=== PATIENT | male | born 1950 | race Caucasian/White ===

== ENCOUNTER 2018-12-27 08:47 | Day surgery (SDC) | payer MEDICARE, OTHER ==
[~2018-12-27] VITALS: Ht 177.8 cm; Wt 72.6 kg
[2018-12-27] VITALS (7 sets, daily range): BP systolic 117–155; BP diastolic 56–74
[~2018-12-27 08:47] MED LIST: ALLOPURINOL100 MG OR; FLEXERIL PO; GLIPIZIDE ER2.5 MG PO; HYDROXYCHLOR200 MG PO; INDOCIN25 MG PO; INDOMETHACIN50 MG OR; LEVOTHYROXIN75 MC1 PO; LORTAB 7.57.5 MG PO; NAPROSYN500 MG PO; NO; PERCOCET 10/31 COMBO PO; TAMSULOSIN HCL0.4 MG PO; TRAMADOL HCL50 MG PO; ULTRAM50 MG OR; ZESTRIL/PRINIV2.5 MG PO; ZESTRIL10 M1 PO; [UNRECOGNIZED DRUG - REMARK]
[2018-12-27 11:32] LABS: BARBITURATES NEGATIVE (NEGATIVE); COCAINE NEGATIVE (NEGATIVE); METHADONE NEGATIVE (NEGATIVE); OXCYCODONE NEGATIVE (NEGATIVE); TETRAHYDROCANNABIONOL NEGATIVE (NEGATIVE); TRICYLIC ANTIDEPRESSANTS NEGATIVE (NEGATIVE)
--- NOTE | 2018-12-27 14:13 | NUR ---
PT ARRIVED ON UNIT @ 1332 VIA STRETCHER AND TRANSFERRED TO BED, ALERT AND ORIENTED X 4. BEDSIDE REPORT GIVEN BY AIDE FROM OR WHO REPORTED DR WORKMAN REMOVED MASS FROM LEFT FACE. DRESSING TO AREA CDI, OR STAFF REPORTED INCISION HAS SUTURES, COVERED WITH STACEY AND SECURED WITH TAPE, EBL = 10CC, ANCEF GIVEN @ 1200. PT ORIENTED TO ROOM AND CALL FRANKLIN. C/O PAIN TO LEFT FACE, IVF INFUSING, VITAL SIGNS BEING MONITORED, WILL CONTINUE TO MONITOR.
--- NOTE | 2018-12-27 20:08 | NUR ---
PT C/O NOT BEING ABLE TO VOID STATES HAD SIMILAR EXPERIENCE WITH PRIOR PROCEDURE. PT HAS HX OF BPH AND TAKES FLOMAX, LAST DOSE TAKEN TUESDAY MORNING. BLADDER NOTED TO BE DISTENDED, BLADDER SCAN DONE SHOWING 708ML IN BLADDER. NOTIFIED DR. WORKMAN VIA TELEPHONE AND RECEIVED ORDERS TO STRAIGHT CATH AND GIVE ONE DOSE OF FLOMAX NOW, IF PT DOES NOT VOID IN [address] PRINCE CATHETER[address] DISCUSSED WITH PT, PT VERBALIZED UNDERSTANDING. PT STRAIGHT CATHED USING STERILE TECHNIQUE, 575ML CLEAR YELLOW URINE OUT. PT TOLERATED WELL. WILL ADMINISTER FLOMAX SOON PHARMACY PROFILES MEDICATION. PT DENIES ANY WANTS OR NEEDS AT THIS TIME. CALL LIGHT WITHIN REACH. WILL CONTINUE TO MONITOR.
--- NOTE | 2018-12-27 22:07 | NUR ---
PT VOIDED 150 ML IN URINE WITHOUT DIFFICULTY. ASSISTED PT UP AND AMBULATED WITH STAND BY ASSIST TO END OF ARZATE AND BACK TO ROOM. PT TOLERATED WELL. ASSISTED BACK TO BED. CADE LIGHT WITHIN REACH. PT HAS NO WANTS OR NEEDS AT THIS TIME. WILL CONTINUE TO MONITOR.
--- NOTE | 2018-12-28 03:02 | NUR ---
PT C/O PAIN 5-10 TO LEFT SIDE OF FACE. MEDICATED WITH PRN PAIN MEDICATION. CALL LIGHT WITHIN REACH. WILL CONTINUE TO MONITOR.
[2018-12-28 04:00] VITALS: BP 116/60
[2018-12-28 07:40] VITALS: BP 150/75
--- NOTE | 2018-12-28 08:00 | NUR ---
PT IS SITTING IN THE SIDE OF THE BED. ASSESSMENT DONE. PT IS A&O X3. RESPS EVEN AND UNLABORED. PT DENIES ANY PAIN AT THIS TIME. LEFT SIDE OF FACE DRESSING IS CDI. PT WONDERING WHAT TIME DC TODAY. TOLD HIM WAITING FOR MD. PT PT DENIES ANY OTHER NEEDS AT THIS TIME. CALL LIGHT IN REACH.
[2018-12-28 08:28] VITALS: BP 150/75
--- NOTE | 2018-12-28 09:29 | NUR ---
CALLED DR. WORKMAN RE: MARIE ROCA STATED WILL WORK ON IT.
--- NOTE | 2018-12-28 11:55 | NUR ---
CALLED DR. WORKMAN RE: DC DUE TO PT KEEPING ASKING WHEN. STATED IS WORKING ON IT NOW.
--- NOTE | 2018-12-28 12:48 | NUR ---
Discharge instructions given. Patient verbalizes understanding of same. Discharged in stable condition via Wheelchair to Home with volunteer. All belongings sent with pt.
== END 2018-12-28 12:50 | disposition home or self-care (01) ==
LOC: MS2 08:47 → ORM 08:47 → MS2 13:34 → ORM 12-28 12:50
PROVIDERS: ATTEND Surgery
PROC: 0HB1XZZ Excision of Face Skin, External Approach (ICD-10-PCS; principal; 2018-12-27)
DX: C43.30 Malignant melanoma of unspecified part of face (principal); I10 Essential (primary) hypertension; Z95.1 Presence of aortocoronary bypass graft
CPT/HCPCS: J1100

== ENCOUNTER 2020-01-16 14:52 | Inpatient (IN) | payer MEDICARE, OTHER ==
[~2020-01-16] VITALS: Ht 177.8 cm; Wt 68.6 kg
--- NOTE | 2020-01-16 15:03 | NUR ---
PT TO ROOM PER EMS
--- NOTE | 2020-01-16 16:00 | NUR ---
PT SWABBED FOR COVID 19 VIRUS
--- NOTE | 2020-01-16 16:15 | NUR ---
PT PRESENTS WITH SOB AFTER ANXIETY. HE STATES HAVING THE ONSET TODAY MID DAY. LUNGS DIMINISHED RIGHT LOWER LOBE AND CLEAR LEFT LOBE. PT CALM NOW AND SATO2 AT 98% RA. WILL CONTINUE TO MONITOR. ASKED FOR ADDITIONAL IV IN AC FOR CT. IV INITIATED RAC 20 G
[2020-01-16 17:05] LABS: HEMATOCRIT 39.4 % (39.0-50.0); HEMOGLOBIN 12.1 g/dl (14.0-18.0); IMMATURE GRANULOCYTES 0.4 % (0.0-5.0); MEAN CELL VOLUME 81.7 fL CALC (80.0-100.0); MEAN CORPUSCULAR HGB 25.1 pG CALC (26.0-32.0); MEAN CORPUSCULAR HGB CONC 30.7 g/dL CAL (32.0-36.0); NEUT# 6.1 thou/uL (1.82-7.42); RED BLOOD COUNT 4.82 mill/uL (4.70-6.10)
[2020-01-16 17:15] LABS: URINE BILIRUBIN - DIPSTICK NEGATIVE (NEGATIVE); URINE BLOOD DIPSTICK TRACE-INTACT (NEGATIVE); URINE COLOR YELLOW; URINE GLUCOSE - DIPSTICK NEGATIVE (NEGATIVE); URINE KETONE NEGATIVE (NEGATIVE); URINE LEUK ESTERASE NEGATIVE (NEGATIVE); URINE NITRITE - DIPSTICK NEGATIVE (Negative); URINE PROTEIN - DIPSTICK NEGATIVE (NEG-TRACE); URINE SPECIFIC GRAVITY 1.025; URINE UROBILINOGEN - DIPSTICK 0.2 E.U./dL (0.2)
--- NOTE | 2020-01-16 17:19 | NUR ---
PT ASKED TO STAND TO PROVIDE URINE SPECIMEN, PT WAS TOLD THAT ITS BEST FOR HIM NOT TO STAND SINCE HE FELL TWO DAYS AGO. HE WAS RELUCTANT TO STAND. I ASSISTED HIM TO URINATE IN URINAL STANDING AND LAY HIM IN BED BEFORE LEAVING ROOM.
[2020-01-16 17:20] LABS: ALBUMIN 4.5 g/dL (3.2-5.0); ALKALINE PHOSPHATASE 98 u/l (38-126); ANION GAP 15 (6-22 (CALC)); BILIRUBIN, TOTAL 0.5 mg/dL (0.0-1.4); BUN 47 mg/dL (8-23); BUN/CREATININE RATIO 24 (12-20 (CALC)); CARBON DIOXIDE 25 mmol/l (22-30); CHLORIDE 106 mmol/l (95-108); GFR 33 ML/MIN (>=60 (CALC)); GFR FOR AFR.AMER. 41 ML/MIN (>=60 (CALC)); LIPASE 434 u/l (23-300); POTASSIUM 4.6 mmol/l (3.5-5.1); SGOT/AST 24 u/l (19-48); SODIUM 141 mmol/l (137-146); TOTAL PROTEIN 8.2 g/dL (6.3-8.2)
--- NOTE | 2020-01-16 18:26 | NUR ---
ATTEMPTED TO CALL REPORT TO MED SURG AND IT WAS SAID NURSE IS BUSY PASSING MEDS AND WILL RETURN MY PHONE CALL
--- NOTE | 2020-01-16 18:38 | NUR ---
GAVE REPORT TO STEVAN TILLMAN
--- NOTE | 2020-01-16 18:50 | NUR ---
PT TRANSFERED TO [facility] STABLE AND IN NO DISTRESS VIA W/C. CARE ASSUMED TO STEVAN Admission Note Report Given to: Transported by: X Wheelchair Stretcher Transported with: X Nurse Transporter X Patent IV O2 X Regional Sales Executive Location: ICU X MS2
--- NOTE | 2020-01-16 18:51 | NUR ---
PT ARRIVED VIA STRETCHER ACCOMPANIED BY STAFF. IV SITE IS FREE FROM REDNESS OR EDEMA.
--- NOTE | 2020-01-16 20:00 | NUR ---
PT RESTING IN BED, NO SIGNS OF DISTRESS NOTED, RESP EVEN AND UNLABORED, DISCUSSED POC, ISOLATION PRECAUTIONS, AND NPO STATUS AFTER MIDNIGHT, PT VERBALIZED UNDERSTANDING. ADMISSION ASSESSMENT COMPLETED, CALL LIGHT IN REACH,CONTINUE TO MONITOR.
[2020-01-16 20:05] VITALS: BP 114/74
--- NOTE | 2020-01-16 21:41 | NUR ---
CALL MADE TO MD REGARDING PAIN, PAIN MEDICATION ORDERED. WILL PROVIDE ONCE PHARMACY PROFILED.
[2020-01-16 23:34] VITALS: BP 119/82
[2020-01-17] VITALS (7 sets, daily range): BP systolic 102–134; BP diastolic 60–82
--- NOTE | 2020-01-17 00:38 | NUR ---
PT SITTING ON SIDE OF BED STATES HE IS NAUSEOUS, EMESIS BAG GIVEN, PT VOMITTED 200CC OF CLEAR EMESIS. OFFERED PT ANTI-EMETIC, PT DECLINED STATES HE WILL BE OK. CALL LIGHT IN REACH,CONTINUE TO MONITOR.
--- NOTE | 2020-01-17 04:00 | NUR ---
PT RESTING IN BED, NO SIGNS OF DISTRESS NOTED, RESP EVEN AND UNLABORED. PT VOICES NO NEEDS OR COMPLAINTS AT THIS TIME, CALL LIGHT IN REACH,CONTINUE TO MONITOR.
--- NOTE | 2020-01-17 07:40 | NUR ---
ASSESSMENT IS COMPLETED: IV SITE IS FREE FROM REDNESS OR EDEMA. HR IS REG,PULSES ARE STRONG X4, ABD IS SOFT WITH ACTIVE BS. BREATH SOUNDS ARE DIMINISHED. TELE MONITOR IN PLACE. CONTINUE TO OBSERVE AND MONITOR.
--- NOTE | 2020-01-17 10:15 | NUR ---
RECEIVED A CALL FROM PHARMACY SPOKE WITH PT UNSURE OF THE MEDICATIONS .WANTS US TO CALL [facility].
--- NOTE | 2020-01-17 10:17 | NUR ---
CALLING DENIA RE: WHEN THE PLAN FOR THE PROCEDURE THIS AM. WILL CALL ME BACK.
--- NOTE | 2020-01-17 10:19 | NUR ---
TRIED TO SPEAK WITH PT TO OBTAIN ACCURATE MED REC. DENIED TAKING ANY PROSTATE MEDS (FLOMAX) AND NERVE PAIN MEDS (GABAPENTIN) --BOTH FILLED FOR 90 DAYS IN SEPTEMBER. HAS 2 CANCER MEDS ON CLAIMS HISTORY, DENIES TAKING/STARTING THEM. PT IS VERY AGITATED AND UNCOOPERATIVE, HUNG UP ON DIRECTOR VALIDATION BEFORE ALL INFO COULD BE OBTAINED.
[2020-01-17] MEDS ORDERED: MORPHINE SUL15 MG PO (10:21)
[2020-01-17] MEDS ORDERED: LEVOTHYROXIN75 MCG PO (10:22)
[2020-01-17] MEDS ORDERED: LISINOP/HCTZ1 TAB PO (10:22)
[2020-01-17] MEDS ORDERED: TRAMADOL HCL50 MG PO (10:23)
[2020-01-17] MEDS ORDERED: INDOMETHACIN50 MG PO (10:23)
[2020-01-17] MEDS ORDERED: GLIPIZIDE ER2.5 MG PO (10:24)
--- NOTE | 2020-01-17 11:00 | NUR ---
PT TRANSPORTED TO HAVE THORACENTESIS COMPLETED: RECIEVED A CALL FROM FAMILY INQUIRING WHAT WAS GOING ON " ALL I KNEW WAS THAT HE C/O UNABLE TO BREATHE AND WAS ADMITTED". EXPLAIEND ABOUT A PROCEDURE AND THEY COULD CALL BACKA ND SPEAK TO THE PT AND SEE HOW HE FEELS.
--- NOTE | 2020-01-17 12:15 | NUR ---
PT IS RELAXING IN BED WITH NO DISTRESS NOTED. IV SITE IS FREE FROM REDNESS OR EDEMA. CONTINUE TO OBSERVE AND MONITOR.
--- NOTE | 2020-01-17 14:36 | NUR ---
PT WENT FOR CT OF THE THORAX. AFTER TESTING PT BECAME A LITTLE NAUSEOUS. GAVE ISP FOR PT TO USE. HAS USED IT BEFORE.
--- NOTE | 2020-01-17 20:30 | NUR ---
PHYSICAL ASSEMENT COMPLETE. VS TAKEN BY AVIATION CONSULTANT @ 2004 ASSESSED. PLAN OF CARE REVIEWED W/ PT, PT VERBALIZES UNDERSTANDING AND DENIES QUESTIONS @ THIS TIME. PT DENIES NEEDS @ THIS TIME. CALL FRANKLIN WITHIN REACH, AGREES TO CALL PRN. BED LOCKED IN LOW POSITION W/ BEDRAILS UPX2. ITEMS WITHIN REACH.
--- NOTE | 2020-01-18 00:15 | NUR ---
VS TAKEN @ 2782 BY SHAREE WILD.
--- NOTE | 2020-01-18 01:50 | NUR ---
PT APPEARS TO BE SLEEPING COMFORTABLY, NO APPARENT DISTRESS. RESPIRATIONS REGULAR AND UNLABORED. CALL FRANKLIN REMAINS WITHIN REACH. BED REMAINS LOCKED IN LOW POSITION W/ BEDRAILS UP X2. ITEMS REMAIN WITHIN REACH.
[2020-01-18 04:20] VITALS: BP 109/69
--- NOTE | 2020-01-18 04:30 | NUR ---
VS TAKEN BY SHAREE @ 0928 TORRI.
[2020-01-18 08:20] VITALS: BP 115/67
--- NOTE | 2020-01-18 08:20 | NUR ---
ASSESSMENT IS COMPLTED: IV SITE IS FREE FROM REDNESS OR EDEMA. HR IS REG,PULSES ARE STRONG X4, ABD IS SOFT WITH ACTIVE BS. BREATH SOUNDS ARE DIMINSHED. TELE MONITOR IN PLACE. CONTINEU TO OSBERVE AND MONITOR.
[2020-01-18 10:45] VITALS: BP 116/64
--- NOTE | 2020-01-18 12:00 | NUR ---
PT IS RELAXING IN BED ATTEMPTED TO EAT LUNCH AND VOMITED.
--- NOTE | 2020-01-18 13:13 | NUR ---
PT VOMITED HIS LUNCH STATED" IF I TAKE WEED THEN I CAN EAT AND NOT GET SICK".
[2020-01-18 16:00] VITALS: BP 116/62
--- NOTE | 2020-01-18 16:00 | NUR ---
ASKED PT ABOUT GETTING MEDICATION PRIOR TO EATING" STATED" ITS NOT GOING TO WORK ". CONTINUE TO OBSERVE AND MONITOR.
--- NOTE | 2020-01-18 17:30 | NUR ---
MEDICATION GIVEN TO PT PRIOR TO EATING. INSTRUCTED PT TO WAIT 30MINUTES PRIOR TO EATING. VERBALIZED UNDERSTANDING.
--- NOTE | 2020-01-18 17:45 | NUR ---
PT INQUIRED ABOUT TAKING IV SITE OUT. CATHETER INTACT.
[2020-01-18 19:05] VITALS: BP 96/70
--- NOTE | 2020-01-18 20:27 | NUR ---
PT SITTING IN BED WATCHING TV. NO DISTRESS NOTED. PT EXPRESSED HOW HE HAD AN EPISODE OF VOMITING EARLIER IN THE DAY BUT STATES THAT HE TOLERATED SUPPER WELL. STATES THAT HIS APPETITE HAS ALWAYS BEEN MINIMAL. NO OTHER NEEDS AT THIS TIME. ASSESSMENT COMPLETED. DISCUSSED POC. CALL LIGHT IN REACH. CONTINUE TO MONITOR.
--- NOTE | 2020-01-18 22:00 | NUR ---
PT SLEEPING IN BED. NO DISTRESS NOTED. RESP EVEN AND UNLABORED. CONTINUE TO MONITOR.
[2020-01-18 23:35] VITALS: BP 87/61
[2020-01-19] VITALS (13 sets, daily range): BP systolic 73–118; BP diastolic 41–70
--- NOTE | 2020-01-19 01:42 | NUR ---
PT FOUND AMBULATING IN THE ROOM. EXPRESSED GENERALIZED JOINT PAIN BUT DENIED ANY DIZZINESS
--- NOTE | 2020-01-19 04:40 | NUR ---
ANALOG DEVICE DESIGNER MANUALLY TAKEN. 80/59. PT PLACED IN TRENDE[place]BURG POSITION. WILL REASSESS IN 30-45 MIN
--- NOTE | 2020-01-19 05:00 | NUR ---
VENIPUNCTURE PERFORMED AT BEDSIDE. PT TOLERATED WELL.
[2020-01-19 05:28] LABS: HEMATOCRIT 39.2 % (39.0-50.0); HEMOGLOBIN 11.7 g/dl (14.0-18.0); MEAN CELL VOLUME 83.9 fL CALC (80.0-100.0); MEAN CORPUSCULAR HGB 25.1 pG CALC (26.0-32.0); MEAN CORPUSCULAR HGB CONC 29.8 g/dL CAL (32.0-36.0); RED BLOOD COUNT 4.67 mill/uL (4.70-6.10); RED CELL DISTRI WIDTH 16.3 % (11.5-15.5)
--- NOTE | 2020-01-19 05:48 | NUR ---
REEVALUATED BP BP NOW 92/60 MANUALLY. NO DISTRESS NOTED. CONTINUE TO MONITOR
[2020-01-19 06:03] LABS: CREATININE 2.2 mg/dL (0.7-1.3); POTASSIUM 5.1 mmol/l (3.5-5.1)
--- NOTE | 2020-01-19 07:50 | NUR ---
ASSESSMENT IS COMPLETED: IV SITE IS FREE FROM REDNESS OR EDEMA. HR IS REG,PULSES ARE STRONG X4, ABD IS SOFT WITH ACTIV BS. BREATHS SOUNDS ARE CLEAR AND DIMINISHED. TELE MONITOR IN PLACE. CONTINEU TO OBSERVE AND MONITOR.
--- NOTE | 2020-01-19 12:15 | NUR ---
PT IS RELAXING IN BED WITH NO DISTRESS NTOED. IV SITE IS FREE FROM REDNESS R EDEMA.
--- NOTE | 2020-01-19 14:50 | NUR ---
RECEIVED A CALL FROM THE LAB PT IS NEGATIVE FOR COVID
--- NOTE | 2020-01-19 15:04 | NUR ---
PLACED PT IN [place]DE[place]G DUE TO BP BEING 73/41 INFORMED PT VERBALIZED UNDERSTANDING.
--- NOTE | 2020-01-19 16:00 | NUR ---
PT HAS BEEN RESTING IN BED RECHECKED BP REMAINS LOW INQUIRED IF ANYTHING COULD BE GIVEN EXPLAINED ABOUT HIS LUNG ISSUES. WE NORMALLY GIVE IV FLUIDS BUT BECAUSE OF HIS ISSUES CAN'T DO THAT. HE VERBALIZED UNDERSTANDING
--- NOTE | 2020-01-19 18:21 | NUR ---
SPOKE WITH DR BRISCOE RE: BP BEING LOW AND PLACING PT IN TRENDELLEN DANIELLA. GAVE NEW ORDER FOR A FLUID BOLUS.
--- NOTE | 2020-01-19 19:05 | NUR ---
REPORT FROM STEVAN WATTS. PT SITTING UP IN BED WATCHING TV. NO APPARENT DISTRESS NOTED. PT DENIES ANY CURRENT WANTS OR NEEDS. DISCUSSED POC. PT VERBALIZED UNDERSTANDING. CALL LIGHT WITHIN REACH. WILL CONTINUE TO MONITOR.
--- NOTE | 2020-01-19 20:56 | NUR ---
PT BP NOTED TO REMAIN LOW(78/43) AFTER RECEIVING 500ML NS BOLUS. PT ASYMPTOMATIC. ALERT AND ORIENTED. NO APPARENT DISTRESS NOTED. PT PLACED IN TRANDELENBURG POSITION. GENERATOR TECHNICIAN PHYSICIAN NOTIFIED. ORDERS RECEIVED TO GIVE ANOTHER 500ML NS BOLUS AND ALBUMIN 12.5G INFUSION. TRANSFER PT TO ICU IF NO RESPONSE TO TX. INFORMED PT AT THIS TIME. VERBALIZED UNDERSTANDING.
--- NOTE | 2020-01-19 21:35 | NUR ---
SECOND BOLUS AND ALBUMIN INFUSING. PT TOLERATING WELL. PT REAMINS IN TRANDELENBURG. BP NOW 108/57 HR 68. WILL CONTINUE TO MONITOR.
[2020-01-20 00:07] VITALS: BP 113/64
--- NOTE | 2020-01-20 00:07 | NUR ---
PT RESTING IN BED WITH EYES CLOSED. NO APPARENT DISTRESS NOTED. BP REMAINS STABLE AT THIS ITME. CALL LIGHT WITHIN REACH. WILL CONTINUE TO MONITOR.
[2020-01-20 03:20] VITALS: BP 102/57
[2020-01-20 05:14] LABS: HEMOGLOBIN 10.9 g/dl (14.0-18.0); IMMATURE GRANULOCYTES 0.2 % (0.0-5.0); MEAN CELL VOLUME 81.4 fL CALC (80.0-100.0); MEAN CORPUSCULAR HGB 24.7 pG CALC (26.0-32.0); MEAN CORPUSCULAR HGB CONC 30.3 g/dL CAL (32.0-36.0); RED BLOOD COUNT 4.42 mill/uL (4.70-6.10); RED CELL DISTRI WIDTH 16.1 % (11.5-15.5)
[2020-01-20 05:27] LABS: BILIRUBIN, TOTAL 0.6 mg/dL (0.0-1.4); CREATININE 2.5 mg/dL (0.7-1.3); POTASSIUM 4.6 mmol/l (3.5-5.1)
[2020-01-20 05:32] LABS: ALBUMIN 3.3 g/dL (3.2-5.0); TOTAL PROTEIN 6.1 g/dL (6.3-8.2)
[2020-01-20 07:36] VITALS: BP 91/63
--- NOTE | 2020-01-20 07:36 | NUR ---
PT RESTING IN BED, NO SIGNS OF DISTRESS NOTED, RESP EVEN AND UNLABORED. PT ALERT AND ORIENTED X3, DISCUSSED POC, VITALS OBTAINED, BP LOW INFORMED PT THAT AM MEDICATIONS WILL BE HELD, PT VERBALIZED UNDERSTANDING. ASSESSMENT COMPLETED, CALL LIGHT IN REACH,CONTINUE TO MONITOR.
[2020-01-20 10:40] VITALS: BP 104/58
--- NOTE | 2020-01-20 12:00 | NUR ---
PT RESTING IN BED, NO SIGNS OF DISTRESS NOTED, RESP EVEN AND UNLABORED. CALL LIGHT IN REACH,CONTINUE TO MONITOR.
--- NOTE | 2020-01-20 13:19 | NUR ---
PT RESTING IN BED, DISCUSSED IVF WITH PT, VERBALIZED UNDERSTANDING. CALL LIGHT IN REACH,CONTINUE TO MONITOR.
[2020-01-20 14:55] VITALS: BP 112/66
--- NOTE | 2020-01-20 17:45 | NUR ---
IV INFILTRATED, IV REMOVED, CATHETER INTACT. NEW #22g TO LFA X1 ATTEMPT. PT TOLERATED WELL. PT C/O NAUSEA, WILL RETURN TO MEDICATE, CALL LIGHT IN REACH,CONTINUE TO MONITOR.
[2020-01-20 18:54] VITALS: BP 118/77
--- NOTE | 2020-01-20 19:05 | NUR ---
REPORT FROM MARIANN WATTS. PT SITTING UP IN BED WATCHING TV. NO APPARENT DISTRESS NOTED. PT DENIES ANY PAIN OR DISCOMFORT. VSS. PT REQUEST STOOL SOFTNERS, OFFERED PRUNE JUICE PT REFUSED, WILL OBTAIN ORDERS FROM DRIVER LIFTER OF SANITATION TRUCK PHYSICIAN. DISCUSSED POC. PT VERBALIZED UNDERSTANDING. CALL LIGHT WITHIN REACH. WILL CONTINUE TO MONITOR.
[2020-01-21] VITALS (7 sets, daily range): BP systolic 95–123; BP diastolic 54–79
--- NOTE | 2020-01-21 00:07 | NUR ---
UPON ENTERING ROOM DYEING MACHINE FEEDER NOTICED ODOR OF MARIJUANA. VACUUM SYSTEM TESTER NOTIFED AT THIS TIME. VACUUM SYSTEM TESTER AND EDUCATIONAL PSYCHOLOGY TEACHER PRESENT WHEN PT CONFRONTED ABOUT SMOKING MARIJUANA IN BATHROOM. PT ADMITS TO SMOKING MARIJUANA IN ROOM AND ALLOWED STAFF TO TAKE HALF SMOKED JOINT AND FILTRATION SUPERVISOR. PT EDUCATED ON SAFETY AND NO SMOKING POLICY. PT VERBALIZED UNDERSTANDING. BELONGS SEALED IN INVENTORY BAG AND SECURED IN MEDICATION ROOM.
--- NOTE | 2020-01-21 04:11 | NUR ---
PT RESTING IN BED WITH EYES CLOSED. NO APPARENT DISTRESS NOTED. CALL LIGHT WITHIN REACH. WILL CONTINUE TO MONITOR.
[2020-01-21 04:57] LABS: HEMATOCRIT 34.2 % (39.0-50.0); HEMOGLOBIN 10.5 g/dl (14.0-18.0); IMMATURE GRANULOCYTES 0.3 % (0.0-5.0); MEAN CELL VOLUME 81.2 fL CALC (80.0-100.0); MEAN CORPUSCULAR HGB 24.9 pG CALC (26.0-32.0); MEAN CORPUSCULAR HGB CONC 30.7 g/dL CAL (32.0-36.0); NEUT# 4.84 thou/uL (1.82-7.42); RED BLOOD COUNT 4.21 mill/uL (4.70-6.10); RED CELL DISTRI WIDTH 16.2 % (11.5-15.5)
[2020-01-21 05:13] LABS: ALBUMIN 3.1 g/dL (3.2-5.0); CREATININE 1.8 mg/dL (0.7-1.3); POTASSIUM 4.5 mmol/l (3.5-5.1); TOTAL PROTEIN 5.6 g/dL (6.3-8.2)
[2020-01-21 05:14] LABS: BILIRUBIN, TOTAL 0.3 mg/dL (0.0-1.4)
--- NOTE | 2020-01-21 08:00 | NUR ---
ASSESSMENT IS COMPLETED: IV SITE IS FREE FROM REDNESS OR EDEMA. HR IS REG,PULSES ARE STRONG X4, ABD IS SOFT WITH ACTIVE BS. BREATH SOUNDS ARE CLEAR AND DIMINSHED. TELE MONITOR IN PLACE. CONTINUE TO OBSERVE AND MONITOR.
--- NOTE | 2020-01-21 11:34 | NUR ---
PT TRANSPORTED TO HAVE THORACENTESIS COMPLETED.
--- NOTE | 2020-01-21 12:03 | NUR ---
NO CARD FOR MEDICAL MARIJUANA. PER PT" I GET IT OFF THE STREET AND WAS WAING FOR THE PERFECT TIME TO USE IT , ALREADY HAD IT ON MY PERSON. GUESS I DIDN'T PICK THE RIGHT TIME".
--- NOTE | 2020-01-21 12:15 | NUR ---
PT RETURNED FROM HAVING THORACENTESIS VIA WC TOLERATED WELL.
--- NOTE | 2020-01-21 12:15 | NUR ---
PT IS RELAXING IN BED WITH NO DISTRESS NTOED. IV SITE ISF REE FROM REDNESS OR EDEMA.
--- NOTE | 2020-01-21 14:01 | NUR ---
PT note Patient is seen for evaluation. Please refer to detailed eval for those results. Patient is a high fall risk and has cardiac precautions. DC recommnedations include a FWW and home health PT
--- NOTE | 2020-01-21 16:16 | NUR ---
IV SITE IS FREE FROM REDNESS OR EDEMA. CONTINUE TO OSBERVE AND MONITOR.
--- NOTE | 2020-01-21 16:30 | NUR ---
REPORT RECEIVED FROM MAC CALLES. PT SITTING UP IN BED. PT IS ABLE TO MAKE NEEDS KNOWN. PT DENIES ANY PAIN OR DISCOMFORT. MATERIALS MANAGEMENT MANAGER WILL CONTINUE TO MONITOR
--- NOTE | 2020-01-21 20:00 | NUR ---
PATIENT RESTING IN BED AWAKE ALERT AND ORIENTEDX3. PATIENT EATING HS SNACK OF DICED PEARS. MEDICATED WITH SCHEDULED MS CONTIN 15MG PO ORDERED FOR 6/10 GENERALIZED JOINT PAIN. TELE MONITOR IN PLACE. IV SITE TO RIGHT FOREARM WITH IVF NS PATENT AND INFUSING AT 50CC/HR. SITE IS HEALTHY AT THIS TIME. SMALL BANDAGE TO RIGHT BACK POST-THORACENTESIS CDI. LUNGS ARE CLEAR. SAFETY PRECAUTIONS REINFORCED. CALL LIGHT IN REACH. WILL CONT TO MONITOR.
--- NOTE | 2020-01-22 | NUR ---
PATIENT RESTING IN BED WATCHING TV. RESPS ARE EVEN AND UNLABORED AT THIS TIME. IVF NS PATENT AND INFUSING VIA RIGHT FOREARM. TELE MONITOR IN PLACE. VOIDING QS YELLOW URINE IN URINAL. SAFETY PRECAUTIONS REINFORCED. CALL LIGHT IN REACH. WILL CONT TO MONITOR.
[2020-01-22 03:55] VITALS: BP 107/70
[2020-01-22 05:09] LABS: HEMATOCRIT 34.1 % (39.0-50.0); HEMOGLOBIN 10.5 g/dl (14.0-18.0); IMMATURE GRANULOCYTES 0.3 % (0.0-5.0); MEAN CELL VOLUME 81.2 fL CALC (80.0-100.0); MEAN CORPUSCULAR HGB CONC 30.8 g/dL CAL (32.0-36.0); NEUT# 4.59 thou/uL (1.82-7.42); RED BLOOD COUNT 4.2 mill/uL (4.70-6.10); RED CELL DISTRI WIDTH 16.3 % (11.5-15.5)
[2020-01-22 05:30] LABS: CREATININE 1.6 mg/dL (0.7-1.3); POTASSIUM 4.8 mmol/l (3.5-5.1)
[2020-01-22 07:40] VITALS: BP 109/59
--- NOTE | 2020-01-22 07:40 | NUR ---
ASSESSMENT IS COMPLETED: IV SITE IS FREE FROM REDNESS OR EDEMA. HR IS REG,PULSES ARE STRONG X4, ABD IS SOFT WITH ACTIVE BS, BREATH SOUNDS ARE CLEAR AND DIMIISHED. TELE MONTOOR IN PLACE.
[2020-01-22] MEDS ORDERED: ZESTRIL10 M1 PO (09:52)
--- NOTE | 2020-01-22 11:15 | NUR ---
PT INFORMED THIS MEDICAL TERMINOLOGIST THAT RIDE WILL NOT BE HERE UNTIL 1800
[2020-01-22 11:17] VITALS: BP 118/63
--- NOTE | 2020-01-22 12:00 | NUR ---
PT IS RELAXING IN BED WITH NO DISTRESS NOTED . IV SITE IS FREE FROM REDNESS OR EDEMA. CONTINEU TO OSBERVE AND MONITOR.
[2020-01-22 15:20] VITALS: BP 108/58
--- NOTE | 2020-01-22 16:15 | NUR ---
PT IS RELAXING IN BED WITH NO DISTRESS NOTED. IV SITE IS FREE FROM REDNESS OR EDEMA.
--- NOTE | 2020-01-22 17:33 | NUR ---
IV SITE DISCONTINUED CATHETER INTACT NO REDNESS OR EDEMA. TELE MONITOR TAKEN OFF FOR DISCHARGE. WAITING ON FAMILY TO COME AND TRANSPORT.
--- NOTE | 2020-01-22 19:01 | NUR ---
DISCHARGE INSTRUCTIONS AND ALSO PERSONAL BELONGINGS. FAMILY IS SUPPOSED TO BE DOWNSTAIRS.CONTINUE TO OSBERVE AND MONITOR.
--- NOTE | 2020-01-22 19:06 | NUR ---
Discharge instructions given. Patient verbalizes understanding of same. Discharged in STABLE condition via Wheelchair to Home with family. All belongings sent with pt. INSTRUCTED PT TO FOLLOW UP WITH STATED " I HAVE TO MAKE ANOTHER APPT, I MISSED MY TRANSPORTATION".
== END 2020-01-22 18:50 | disposition home health service (06) | DRG 595 ==
LOC: ED 14:52 → ED-I 17:30 → ED 17:47 → ED-I 17:48 → MS2 17:48
PROVIDERS: Family Medicine; Nurse Practitioner Family; ADMIT Internal Medicine; ATTEND Internal Medicine
PROC: 0W993ZX Drainage of Right Pleural Cavity, Percutaneous Approach, Diagnostic (ICD-10-PCS; principal; 2020-01-17)
PROC: 0W993ZZ Drainage of Right Pleural Cavity, Percutaneous Approach (ICD-10-PCS; 2020-01-21)
DX: C43.9 Malignant melanoma of skin, unspecified (principal); J18.9 Pneumonia, unspecified organism; J91.0 Malignant pleural effusion; C78.01 Secondary malignant neoplasm of right lung; I10 Essential (primary) hypertension; G89.29 Other chronic pain; E11.9 Type 2 diabetes mellitus without complications; I95.9 Hypotension, unspecified; F12.90 Cannabis use, unspecified, uncomplicated; T45.1X6A Underdosing of antineoplastic and immunosuppressive drugs, initial encounter; Z91.128 Patient's intentional underdosing of medication regimen for other reason; Z79.84 Long term (current) use of oral hypoglycemic drugs; Z95.1 Presence of aortocoronary bypass graft; Z20.828 Contact with and (suspected) exposure to other viral communicable diseases
CPT/HCPCS: G0378

== ENCOUNTER 2020-01-24 20:29 | Inpatient (IN) | payer MEDICARE, OTHER ==
[~2020-01-24] VITALS: Ht 177.8 cm; Wt 66.7 kg
[~2020-01-24 20:29] MED LIST changes: +INDOMETHACIN50 MG PO; +LEVOTHYROXIN75 MCG PO; +LISINOP/HCTZ1 TAB PO; +MORPHINE SUL15 MG PO
--- NOTE | 2020-01-24 20:32 | NUR ---
PATIENT TO ROOM 9 VIA EMS STRETCHER. PATIENT CONCERNED ABOUT HIS BLURRED VISION AFTER TAKING HIS CHEMO PILL FOR THE FIRST TIME. STATES HIS DOCTOR TOLD HIM THAT IT WAS POSSIBLE TO HAVE BLURRED VISION. DESCRIBES VISION BEING DARKER THAN NORMAL. TRIAGE COMPLETED AT BEDSIDE. AWAITING MD MORENO.
[2020-01-24 21:15] LABS: HEMATOCRIT 36.2 % (39.0-50.0); HEMOGLOBIN 11.3 g/dl (14.0-18.0); IMMATURE GRANULOCYTES 0.3 % (0.0-5.0); MEAN CELL VOLUME 79.6 fL CALC (80.0-100.0); MEAN CORPUSCULAR HGB 24.8 pG CALC (26.0-32.0); MEAN CORPUSCULAR HGB CONC 31.2 g/dL CAL (32.0-36.0); NEUT# 4.75 thou/uL (1.82-7.42); RED BLOOD COUNT 4.55 mill/uL (4.70-6.10); RED CELL DISTRI WIDTH 16.1 % (11.5-15.5)
[2020-01-24 21:26] LABS: ALBUMIN 3.3 g/dL (3.2-5.0); BILIRUBIN, TOTAL 0.3 mg/dL (0.0-1.4)
[2020-01-24 21:30] LABS: CREATININE 3.3 mg/dL (0.7-1.3); POTASSIUM 5.6 mmol/l (3.5-5.1)
[2020-01-24 21:33] LABS: ACT PARTIAL THROMBO TIME 27.4 SECONDS (20.0-32.5); INTERNATIONAL NORMALIZED RATIO 0.9 RATIO (0.7-1.3); PROTHROMBIN TIME 9.5 SECONDS (9.0-12.5)
--- NOTE | 2020-01-24 21:54 | NUR ---
pATIENT STATES THAT HE DOES NOT KNOW WHAT MEDICATIONS THAT HE TAKES AT HOME.
--- NOTE | 2020-01-24 22:26 | NUR ---
MD AT BEDSIDE TO DISCUSS RESULTS AND PLANS TO ADMIT
--- NOTE | 2020-01-24 23:09 | NUR ---
rEPORT GIVEN TO MARIA DOLORES ON MED/SURG. PATIENT TAKING TO INPATIENT ROOM BY WHEELCHAIR. NO C/O PAIN OR DISCOMFORT, NO S/S OF DISTRESS NOTED.
--- NOTE | 2020-01-24 23:12 | NUR ---
PT. ARRIVED TO THE FLOOR VIA W/C ACCOMPANIED BY NURSE. PT. A/A/AO X3. AMBULATED TO THE BATHROOM TO VOID AND ASSISTED BACK INTO BED. ORIENTED TO ROOM, CALL LIGHT, AND POC; VERBALIZES UNDERSTANDING. PT. REPORTS HE DOES NOT HAVE A MED LIST AND DOES NOT KNOW THE NAMES OF THE MEDICATIONS HE IS TAKING. PT. DOES REPORT THAT HE TOOK APPROXIMATELY 9 PILLS YESTERDAY FOR HIS NEW CHEMO DRUGS HE WAS ADVISED TO TAKE FROM ONCOLOGIST. REPORTS HE MISSED HIS APPOINTMENT WITH HIM YESTERDAY, BUT HAS HAD THESE PILLS SINCE LAST MONTHS VISIT, BUT HAD NOT TAKEN THEM UNTIL NOW. REPORTS THAT HE WAS HAVING BLURRED VISION EARLIER TODAY; DENIES MCCRACKEN. NO SOB NOTED OR COUGH. PT. IS ON RA. GABBI HOSE APPLIED TO BLE ALONG WITH NON-SKID SOCKS. PT. IS INSTRUCTED TO CALL FOR ALL OOB NEEDS AND VERBALIZES UNDERSTANDING. INSTRUCTED TO CALL FOR ANY NEEDS. CALL LIGHT IS IN REACH.
[2020-01-24 23:33] VITALS: BP 148/85
--- NOTE | 2020-01-25 02:49 | NUR ---
PT. STANDING AT BEDSIDE USING URINAL AND REMINDED TO CALL STAFF FOR OOB NEEDS. URINAL EMPTIED. BED ALARM SET FOR SAFETY. PT. IS NOTED WITH EXERTIONAL SOB AND O2 APPLIED @2LITERS/MIN PER NC. CALL LIGHT IS IN REACH. WILL CONTINUE TO MONITOR.
--- NOTE | 2020-01-25 04:00 | NUR ---
PT. WITH EMS IV AND REMOVED AT THIS TIME WITH CATHETER TIP INTACT. NEW IV STARTED TO LFA X1 ATTEMPT AND AM LABS OBTAINED. PT. TOLERATED WELL. PT. ASSISTED TO USE URINAL AND BACK INTO BED. PT. IS WITH EXERTIONAL SOB. WILL CONTINUE TO MONITOR. DENIES FURTHER NEEDS. CALL LIGHT IS IN REACH.
[2020-01-25 04:29] VITALS: BP 102/67
[2020-01-25 04:58] LABS: CREATININE 2.8 mg/dL (0.7-1.3)
[2020-01-25 05:06] LABS: POTASSIUM 5.2 mmol/l (3.5-5.1)
--- NOTE | 2020-01-25 07:00 | NUR ---
REPORT RECEIVED FROM PRIMO WHITTEN;PT APPEARS TO BE SLEEPING IN SUPINE POSITION;NO S/S OF DISTRESS NOTED;RESPIRATIONS EVEN AND UNLABORED ON O2 @ 2L VIA NC;IV FLUIDS INFUSING WITH EASE PER ORDER;ALL SAFETY PRECAUTIONS IN PLACE WITH BED IN THE LOWEST POSITION AND BED ALARM ON FOR SAFETY;CALL LIGHT IN REACH;WILL CONTINUE TO MONITOR
[2020-01-25 07:39] VITALS: BP 99/63
--- NOTE | 2020-01-25 07:40 | NUR ---
PT APPEARS TO BE SLEEPING IN SUPINE POSITION,WAKES EASILY TO VERBAL STIMULI.A&O X3.VS OBTAINED AND ASSESSMENT COMPLETED, CURRENT BP 99/63 HR 96;PT REPORTS BILATERAL HAND PAIN AND REQUESTS PO MORPHINE THAT HE TAKES AT HOME,SHELBY ZAMORANO NOTIFIED.NO NEW ORDERS AT THIS TIME;RESPIRATIONS SHALLOW ON RA,DIMINISHED LUNG SOUNDS;ABDOMEN SOFT ON PALPATION AND ACTIVE IN ALL 4 QUADRANTS;WEAK PEDAL PULSES;SKIN INTACT;#22G TO LFA INFUSING NS @ 100ML/HR,SITE APPEARS HEALTHY;PT DENIES ANY ADDITIONAL NEEDS AND IS ENCOURAGED TO CALL FOR ASSISTANCE IF NEEDED;FALL PRECAUTIONS IN PLACE WITH BED IN THE LOWEST POSITION AND BED ALARM ON FOR SAFETY;CALL LIGHT IN REACH;WILL CONTINUE TO MONITOR
[2020-01-25] MEDS ORDERED: MORPHINE SULFAT15 M4 PO (09:24)
[2020-01-25] MEDS ORDERED: SYNTHROID75 MCG PO (09:25)
[2020-01-25] MEDS ORDERED: TRAMADOL HCL50 MG PO (09:25)
--- NOTE | 2020-01-25 09:45 | NUR ---
PT TRANSPORTED TO [facility] IN STABLE CONDITION VIA WHEELCHAIR ACCOMPANIED BY SHAREE KABA
[2020-01-25] MEDS ORDERED: GLIPIZIDE ER2.5 MG PO (09:51)
[2020-01-25] MEDS ORDERED: LISINOP/HCTZ1 TAB PO (09:59)
--- NOTE | 2020-01-25 10:29 | NUR ---
PT ARRIVED BACK TO MED/SURG IN STABLE CONDITION VIA WHEELCHAIR ACCOMPANIED BY SHAREE KABA
--- NOTE | 2020-01-25 11:15 | NUR ---
AT BEDSIDE DISCUSSING POC.
--- NOTE | 2020-01-25 12:00 | NUR ---
PT RESTING IN SEMI FOWLERS POSITION EATING LUNCH;RESPIRATIONS EVEN AND UNLABORED ON RA;PT DENIES ANY CURRENT PAIN BUT DOES REPORT NAUSEA,EMESIS BAGS PROVIDED AND PT REFUSES THE NEED FOR ANTIEMETIC AT THIS TIME;IV FLUIDS CONTINUE TO INFUSE WITH EASE;PT DENIES ANY ADDITIONAL NEEDS AT THIS TIME AND IS ENCOURAGED TO FOR ASSISTANCE IF NEEDED;FALL PRECAUTIONS IN PLACE WITH BED IN THE LOWEST POSITION AND CALL LIGHT IN REACH;WILL CONTINUE TO MONITOR
--- NOTE | 2020-01-25 13:10 | NUR ---
PT TRANSPORTED TO MRI IN STABLE CONDITION VIA WHEELCHAIR ACCOMPANIED BY SHAREE KABA
--- NOTE | 2020-01-25 13:34 | NUR ---
PT RETURNED BACK TO MED/SURG ROOM 260 IN STABLE CONDITION VIA WHEELCHAIR ACCOMPANIED BY SHAREE KABA AFTER REFUSAL OF MRI. NOTIFIED.
--- NOTE | 2020-01-25 15:45 | NUR ---
PT RESTING IN SEMI FOWLERS POSITION WATCHING TV;RESPIRATIONS EVEN AND UNLABORED ON RA;PT DENIES ANY CURRENT PAIN OR DISCOMFORTS;IV FLUIDS INFUSING WITH EASE;PT DENIES ANY ADDITIONAL NEEDS AT THIS TIME AND IS ENCOURAGED TO CALL FOR ASSISTANCE IF NEEDED;FALL PRECAUTIONS REMAIN IN PLACE WITH BED IN THE LOWEST POSITION AND CALL LIGHT IN REACH;WILL CONTINUE TO MONITOR
[2020-01-25 16:44] VITALS: BP 93/56
--- NOTE | 2020-01-25 18:45 | NUR ---
1845-Pt lying in bed. No s/s of distress. Denies concerns at this time. Assessment complete. Assessment unremarkable. Pt does have issues with hearing, I had to speak clearly and face the pt. Bed low and locked. Call light and phone within reach. Pt stable. Will continue to monitor.
[2020-01-25 19:00] VITALS: BP 94/51
[2020-01-25 19:05] VITALS: BP 94/51
--- NOTE | 2020-01-25 22:45 | NUR ---
2245-Pt lying in bed awake. No s/s of distress. Pt asked for snack, provided snack with fresh water. Assisted pt with urinal, removed 500 cc of clear, yellow urine. Pt stated he was cold, we turned up the thermostat. Bed low and locked. Call light and phone within reach. Pt stable. Will continue to monitor.
--- NOTE | 2020-01-26 03:00 | NUR ---
0300-Pt. lying on left side in bed. No s/s of distress. Bed low and locked. Call light and phone within reach. Pt stable. Will continue to monitor.
[2020-01-26 03:50] VITALS: BP 97/57
[2020-01-26 05:20] LABS: IMMATURE GRANULOCYTES 0.2 % (0.0-5.0); MEAN CELL VOLUME 80.6 fL CALC (80.0-100.0); MEAN CORPUSCULAR HGB 25.3 pG CALC (26.0-32.0); MEAN CORPUSCULAR HGB CONC 31.4 g/dL CAL (32.0-36.0); NEUT# 4.15 thou/uL (1.82-7.42); RED BLOOD COUNT 3.6 mill/uL (4.70-6.10); RED CELL DISTRI WIDTH 16.2 % (11.5-15.5)
[2020-01-26 05:24] LABS: HEMOGLOBIN 9.1 g/dl (14.0-18.0)
[2020-01-26 06:10] LABS: CREATININE 1.8 mg/dL (0.7-1.3); POTASSIUM 5.2 mmol/l (3.5-5.1)
--- NOTE | 2020-01-26 06:10 | NUR ---
0610-Pt. lying in bed. Denies pain. No s/s of distress. Bed low and locked. Call light and phone within reach. Pt stable. Will continue to monitor.
[2020-01-26 07:21] VITALS: BP 98/51
--- NOTE | 2020-01-26 07:21 | NUR ---
PT SLEEPING IN BED. AWAKENED TO COMPLETE ASSESSMENT. A&O X3. NO DISTRESS NOTED. PT DENIES ANY PAIN AT THIS TIME. NO OTHER NEEDS AT THIS TIME. ASSESSMENT COMPLETED. DISCUSSED POC.CALL LIGHT IN REACH. CONTINUE TO MONITOR.
--- NOTE | 2020-01-26 10:35 | NUR ---
PT SLEEPING IN BED. NO DISTRESS NOTED. RESP EVEN AND UNLABORED. CONTINUE TO MONITOR
--- NOTE | 2020-01-26 16:30 | NUR ---
PT SITTING IN BED WATCHING TV. NO DISTRESS NOTED. NO NEEDS AT THIS TIME. CALL LIGHT IN REACH. CONTINUE TO MONITOR.
[2020-01-26 16:31] VITALS: BP 125/58
[2020-01-26 18:48] VITALS: BP 125/69
--- NOTE | 2020-01-26 19:30 | NUR ---
PATIEMT RESTING IN BED AT THIS TIME-AWAKE ALERT AND ORIENTEDX3. [place], PATIENT WITH NO COMPLAINTS AT THIS TIME. STATES THAT HIS BREATHING HAD IMPROVED SINCE THORACENTESIS YESTERDAY. SMALL DRESSING TO RIGHT BACK CDI. IV SITE TO LEFT FOREARM INTACT WITH IVF ORDERED. SAFETY PRECAUTIONS REINFORCED. CALL LIGHT IN RREACH. WILL CONT TO MONITOR.
--- NOTE | 2020-01-27 00:18 | NUR ---
PATIENT RESTING IN BED AT THIS TIME. VOIDED 300CC OF YELLOW URINE IN URINAL. MEDICATED FOR C/O PAIN WITH MS CONTIN 15MG PO. SAFETY PRECAUTIONS REINFORCED. CALL LIGHT IN REACH. WILL CONT TO MONITOR.
--- NOTE | 2020-01-27 03:54 | NUR ---
PATIENT APPEARS SLEEPING AT THIS TIME WITH EYES CLOSED. RESP ARE EVEN AND UNLABORED. IVF PATENT AND INFUSING VIA LAC SITE ORDERED. CALL LIGHT IN REACH. WILL CONT TO MONITOR.
[2020-01-27 04:00] VITALS: BP 138/66
[2020-01-27 04:48] LABS: HEMATOCRIT 30.4 % (39.0-50.0); HEMOGLOBIN 9.3 g/dl (14.0-18.0); MEAN CELL VOLUME 81.9 fL CALC (80.0-100.0); MEAN CORPUSCULAR HGB 25.1 pG CALC (26.0-32.0); MEAN CORPUSCULAR HGB CONC 30.6 g/dL CAL (32.0-36.0); RED BLOOD COUNT 3.71 mill/uL (4.70-6.10); RED CELL DISTRI WIDTH 16.2 % (11.5-15.5)
[2020-01-27 05:03] LABS: ALBUMIN 2.7 g/dL (3.2-5.0); BILIRUBIN, TOTAL 0.2 mg/dL (0.0-1.4); CREATININE 1.5 mg/dL (0.7-1.3); TOTAL PROTEIN 5.4 g/dL (6.3-8.2)
[2020-01-27 05:04] LABS: POTASSIUM 5.2 mmol/l (3.5-5.1)
[2020-01-27 07:23] VITALS: BP 143/74
--- NOTE | 2020-01-27 07:23 | NUR ---
PT SITTING ON THE SIDE OF THE BED. A&O X3. NO DISTRESS NOTED. PT DENIES ANY PAIN OR NEEDS AT THIS TIME. PT HR BRADYCARDIC THIS MORNING. ASSESSMENT COMPLETED. DISCUSSED POC. CALL LIGHT IN REACH. CONTINUE TO MONITOR.
--- NOTE | 2020-01-27 11:02 | NUR ---
PT SLEEPING IN BED. NO DISTRESS NOTED. RESP EVEN AND UNLABORED. CONTINUE TO MONITOR
--- NOTE | 2020-01-27 13:27 | NUR ---
PT SITTING IN BED. NO DISTRESS NOTED, PT REPORTED OF HAVING A BM. NO OTHER NEEDS AT THIS TIME. CONTINUE TO MONITOR
[2020-01-27 15:50] VITALS: BP 134/67
[2020-01-27 19:20] VITALS: BP 134/69
--- NOTE | 2020-01-27 19:30 | NUR ---
PATIENT RESTING IN BED AT THIS TIME WITH HOB ELEVATED AND WATCHING TV. AWAKE ALERT AND ORIENTEDX3. DENIES ANY PAIN OR CONCERNS AT THIS TIME. IVF PATENT AND INFUSING VIA LAC SITE AT 125CC/HR, SITE APPEARS HEALTHY AT THIS TIME. DRESSING TO RIGHT BACK IS CDI FROM THORACENTESIS LAST WEEK. LUNGS ARE CLEAR AND DIMINISHED IN RIGHT BASE. VOIDING YELLOW URINE IN URINAL. SAFETY PRECAUTIONS REINFORCED. CALL LIGHT IN REACH.WILL CONT TO MONITOR.
--- NOTE | 2020-01-27 22:33 | NUR ---
PATIENT RESTING IN BED-C/O GFENRALIZED AND H AND PAIN-MEDICATED WITH MS CONTIN 15MG PO FOR PAIN. VOIDED 300CC OF YELLOW URINE IN URINAL. PROVIDED WITH ICE CREAM FOR SNACK. SAFETY PRECAUTIONS REINFORCED. CALL LIGHT IN REACH. WILL CONT TO MONITOR.
[2020-01-28 03:25] VITALS: BP 137/71
--- NOTE | 2020-01-28 03:51 | NUR ---
PATIENT AWAKE ALERT AND ORIENTED C/O GENERALIZED PAIN-MEDICATED WITH MS CONTIN 15MG PO ORDERED FOR PAIN. VOIDING QS YELLOW URINE IN URINAL. PROVIDED WITH ICE CREAM FOR HS SNACK. SAFETY PRECAUTIONS REINFORCED. CALL LIGHT IN REACH. WILL CONT TO MONITOR.
--- NOTE | 2020-01-28 03:52 | NUR ---
PATIENT APPEARS SLEEPING WITH EYES CLOSED AND POSITIONED ON RIGHT SIDE. RESP ARE EVEN AND UNLABORED. IVF NS PATENT AND INFUSING VIA LEFT FOREARM SITE ORDERED. CALL LIGHT IN REACH. WILL CONT TO MONITOR.
[2020-01-28 07:27] LABS: ANION GAP 9 (6-22 (CALC)); BUN 43 mg/dL (8-23); BUN/CREATININE RATIO 33 (12-20 (CALC)); CARBON DIOXIDE 18 mmol/l (22-30); CHLORIDE 115 mmol/l (95-108); CREATININE 1.3 mg/dL (0.7-1.3); GFR 55 ML/MIN (>=60 (CALC)); GFR FOR AFR.AMER. > 60 ML/MIN (>=60 (CALC)); POTASSIUM 4.9 mmol/l (3.5-5.1); SODIUM 137 mmol/l (137-146)
[2020-01-28 07:57] VITALS: BP 162/86
--- NOTE | 2020-01-28 09:22 | NUR ---
PT SEEN AWAKE, ALERT, RESTING IN THE BED WITHOUT EVIDENCE OF DISTRESS. LUNGS ARE CLEAR, RA. NO REPORT OF SHORTNESS OF BREATH.
--- NOTE | 2020-01-28 13:13 | NUR ---
PT HAS BEEN SHOWERED THIS MORNING, FEELS BETTER. PT ANTICIPATES DISCHARGE TOMORROW.
[2020-01-28 15:38] VITALS: BP 148/77
--- NOTE | 2020-01-28 16:41 | NUR ---
PT WITH JOINT PAIN, PROVIDED TRAMADOL FOR SAME. LATER, PT SEEN RESTING IN THE BED WITH EYES CLOSED, NO APPARENT DISTRESS.
[2020-01-28 19:10] VITALS: BP 133/79
--- NOTE | 2020-01-28 19:30 | NUR ---
PATIENT SITTING UP IN BED AT THIS TIME-AWAKE ALERT AND ORIENTEDX3 WATCHING TV. PATIENT WITH NO COMPLAINTS OR CONCERNS AT THIS TIME. VOIDING CLEAR YELLOW URINE IN URINAL. NO BM TODAY. LUNGS ARE CLEAR AND DIMINISHED IN THE BASES. ENCOURAGED CDB EXERCISES. IV SITE TO LAC INTACT AND HEALTHY AT THIS TIME. PATIENT TO BE DISCHARGED TOMORROW AND HAS F/UP APPT WITH DR. HAINES TOMORROW AFTERNOON. SAFETY PRECAUTIONS REINFORCED. CALL LIGHT IN REACH., WILL CONT TO MONITOR.
--- NOTE | 2020-01-29 00:44 | NUR ---
PATIENT RESTING IN BED AT THIS TIME-NO COMPLAINTS OR CONCERNS AT THIS TIME. CALL LIGHT IN REACH. WILL CONT TO MONITOR.
--- NOTE | 2020-01-29 03:14 | NUR ---
PATIENT APPEARS TO SLEEPING POSITIONED ON RIGHT SIDE. RESP ARE EVEN AND UNLABORED. VOIDING QS IN URINAL YELLOW URINE. IVF PATENT AND INFUSING ORDERED. CALL LIGHT IN REACH. WILL CONT TO MONITOR.
[2020-01-29 04:16] VITALS: BP 116/69
[2020-01-29 07:27] VITALS: BP 132/73
--- NOTE | 2020-01-29 09:29 | NUR ---
PT AWAKE, ALERT, AMBULATORY IN ROOM. LUNGS CLEAR, RA. NO COMPLAINT SHORTNESS OF BREATH OR OTHERWISE. PT AWARE OF PLAN TO DISCHARGE TODAY, THEN TO BE TAKEN TO DOCTOR HAINES APPOINTMENT, THEN BE TAKEN HOME.
[2020-01-29] MEDS ORDERED: DECADRON4 M1 PO (09:49)
[2020-01-29] MEDS ORDERED: AMLODIPINE BESYL5 MG PO (09:49)
--- NOTE | 2020-01-29 11:49 | NUR ---
PT SEEN BY DR ODOM THIS MORNING, DISCHARGED TO HIS APPOINTMENT WITH DR HAINES. PT VERBALIZED UNDERSTANDING OF DC INSTRUCTIONS, IS READY TO BE TAKEN DOWNSTAIRS WHEN [facility] ARRIVES. PT LEAVES [facility] IN STABLE CONDITION.
--- NOTE | 2020-01-29 12:03 | NUR ---
PT BEING TAKEN TO LOBBY AT THIS TIME FOR TRANSPORT TO DR HAINES'S OFFICE.
== END 2020-01-29 12:00 | disposition home or self-care (01) | DRG 595 ==
LOC: ED 20:29 → ED-I 22:12 → ED 22:28 → MS2 22:29 → ED-I 22:29 → MS2 22:39
PROVIDERS: Family Medicine; Nurse Practitioner Family; ADMIT Internal Medicine; ATTEND Internal Medicine
PROC: 0W993ZZ Drainage of Right Pleural Cavity, Percutaneous Approach (ICD-10-PCS; principal; 2020-01-25)
DX: C43.9 Malignant melanoma of skin, unspecified (principal); G93.6 Cerebral edema; J91.0 Malignant pleural effusion; N17.9 Acute kidney failure, unspecified; N18.4 Chronic kidney disease, stage 4 (severe); C78.01 Secondary malignant neoplasm of right lung; C79.31 Secondary malignant neoplasm of brain; E86.0 Dehydration; E11.22 Type 2 diabetes mellitus with diabetic chronic kidney disease; I12.9 Hypertensive chronic kidney disease with stage 1 through stage 4 chronic kidney disease, or unspecified chronic kidney disease; Z79.84 Long term (current) use of oral hypoglycemic drugs; Z95.1 Presence of aortocoronary bypass graft
CPT/HCPCS: G0378; J1650

== ENCOUNTER 2020-02-13 10:57 | Observation (INO) | payer MEDICARE, OTHER ==
[~2020-02-13] VITALS: Ht 180.3 cm; Wt 66.8 kg
[~2020-02-13 10:57] MED LIST changes: +AMLODIPINE BESYL5 MG PO; +DECADRON4 M1 PO; +MORPHINE SULFAT15 M4 PO; +SYNTHROID75 MCG PO
--- NOTE | 2020-02-13 11:13 | NUR ---
PT TO ROOM PER EMS. HAS HAD LUNG CANCER FOR SEVERAL YEARS, AND HAS GONE TO BRAIN. LIVES ALONE, IS ALWAYS OUT OF BREATH BUT GOT WOWRSE YESTERDAY
[2020-02-13 11:49] LABS: HEMOGLOBIN 11.2 g/dl (14.0-18.0); IMMATURE GRANULOCYTES 0.3 % (0.0-5.0); MEAN CELL VOLUME 82.3 fL CALC (80.0-100.0); MEAN CORPUSCULAR HGB 24.8 pG CALC (26.0-32.0); MEAN CORPUSCULAR HGB CONC 30.2 g/dL CAL (32.0-36.0); NEUT# 6.87 thou/uL (1.82-7.42); RED BLOOD COUNT 4.51 mill/uL (4.70-6.10); RED CELL DISTRI WIDTH 17.1 % (11.5-15.5)
[2020-02-13 11:50] LABS: HEMATOCRIT 37.1 % (39.0-50.0)
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
[2020-02-13 12:11] LABS: CREATININE 1.5 mg/dL (0.7-1.3); POTASSIUM 5.1 mmol/l (3.5-5.1)
[2020-02-13 12:12] LABS: ALBUMIN 3.8 g/dL (3.2-5.0); BILIRUBIN, TOTAL 0.7 mg/dL (0.0-1.4); TOTAL PROTEIN 6.6 g/dL (6.3-8.2)
--- NOTE | 2020-02-13 12:52 | NUR ---
SBAR PRINTED TO FLOOR
[2020-02-13 13:07] LABS: INTERNATIONAL NORMALIZED RATIO 0.9 RATIO (0.7-1.3); PROTHROMBIN TIME 9.8 SECONDS (9.0-12.5)
--- NOTE | 2020-02-13 13:55 | NUR ---
PT BACK FROM RADIOLOGY. SITTING WATCHING TV. VITAL SIGNS STABLE
--- NOTE | 2020-02-13 14:14 | NUR ---
PT STATES HE HAS STOPPED TAKING ALL HIS MEDICATIONS BUT HIS BLOOD PRESSURE BUT HE CANT REMEMBER THAT NAME OR DOSAGE.
--- NOTE | 2020-02-13 15:52 | NUR ---
REPORT CALLED TO FLOOR FOR CONTINUATION OF CARE
[2020-02-13 16:01] VITALS: BP 128/80
--- NOTE | 2020-02-13 16:01 | NUR ---
PT ARRIVED TO MED/SURG ROOM 278 IN STABLE CONDITION VIA WHEELCHAIR ACCOMPANIED BY PRIMO GARDNER;PT AMBULATED TO STANDING SCALE AND BEDSIDE WITH A WEAK GAIT;WT AND VS OBTAINED AT THIS TIME;PT DENIES ANY CURRENT PAIN OR DISCOMFORTS,PAIN SCALE AND REPORTING EDUCATED;PT A&OX3,ORIENTED TO ROOM AND CALL LIGHT SYSTEM;PT REPORTS INCREASED SOB PRIOR TO ARRIVAL WHICH HAS RESOLVED SINCE BEING AT [facility];ASSESSMENT COMPLETED;RESPIRATIONS EVEN AND UNLABORED ON RA,CLEAR LUNG SOUNDS;ABDOMEN SOFT ON PALPATION AND ACTIVE IN ALL 4 QUADRANTS,LAST BM 02/13/20;WEAK PEDAL PULSES;SKIN INTACT;EMS #18G TO LAC FLUSHED AND PATENT,SITE APPEARS HEALTHY;TELE MONITORING IN PLACE;ALLERGY BAND APPLIED TO RIGHT ARM;PT DENIES ANY ADDITIONAL NEEDS AT THIS TIME AND IS ENCOURAGED TO CALL FOR ASSISTANCE IF NEEDED;FALL PRECAUTIONS IN PLACE WITH BED IN THE LOWEST POSITION AND CALL LIGHT IN REACH;WILL CONTINUE TO MONITOR
--- NOTE | 2020-02-13 16:06 | NUR ---
PT TAKEN TO FLOOR PER W/C, REPORT GIVEN TO NURSE FOR CONTINUATION OF CARE
[2020-02-13] MEDS ORDERED: NORVASC5 M1 PO (16:39)
[2020-02-13] MEDS ORDERED: AMLODIPINE BESYL5 MG PO (16:40)
--- NOTE | 2020-02-13 17:33 | NUR ---
PT RESTING IN SEMI FOWLERS POSITION;RESPIRATIONS EVEN AND UNLABORED ON RA;PT DENIES ANY CURRENT PAIN BUT DOES REPORT NAUSEA WHILE EATING DINNER,EMESIS BAG PROVIDED;PT REQUESTS MILK AND DENIES ANY NAUSEA MEDICATION AT THIS TIME;TELE MONITORING IN PLACE;ENCOURAGED TO CALL FOR ASSISTANCE IF NEEDED;CALL LIGHT IN REACH;WILL CONTINUE TO MONITOR
[2020-02-13 19:36] VITALS: BP 100/64
--- NOTE | 2020-02-13 20:35 | NUR ---
PHYSICAL ASSESMENT COMPLETE. VS TAKEN BY SHAREE @ 1936 ASSESED. TELEMETRY READING FROM ED CALL CENTER CONSULTANT @ 1999 ASSESSED. PLAN OF CARE REVIEWED, PT VERBALIZES UNDERSTANDING, DENIES QUESTIONS. PT DENIES NEEDS @ THIS TIME. ITEMS WITHIN REACH. CALL FRANKLIN WITHIN REACH, AGREES TO CALL PRN. BED LOCKED IN LOW POSITION W/ BEDRAILS UP X2.
[2020-02-13 23:45] VITALS: BP 123/68
[2020-02-13 23:48] VITALS: BP 114/42
--- NOTE | 2020-02-14 00:10 | NUR ---
PT APPEARS TO BE SLEEPING, NO APPARENT DISTRESS, APPEARS COMFORTABLE, RESPIRATIONS REGULAR AND UNLABORED. VS TAKEN BY DIMENSIONAL INTEGRATION ENGINEER @ 2345 ASSESED. TELEMETRY READING FROM ED TAPE EDITOR @ 0000 ASSESSED. ITEMS REMAIN WITHIN REACH. CALL FRANKLIN REMAINS WITHIN REACH, BED REMAINS LOCKED IN LOW POSITION W/ BEDRAILS UP X2.
--- NOTE | 2020-02-14 01:30 | NUR ---
PT REQUESTING HOME DOSE MS CONTIN FOR PAIN. NO ORDER TO RECONTINUE. DR. BRISCOE CONTACTED AND ASKED TO RESUME PT'S MS CONTIN. X1 ORDER RECEIVED, SEE CHART FOR WRITTEN ORDER. FAXED TO [facility] AND GIVEN TO PT, SEE DEC.
[2020-02-14 03:13] VITALS: BP 112/70
[2020-02-14 05:20] LABS: HEMATOCRIT 38.2 % (39.0-50.0); HEMOGLOBIN 11.5 g/dl (14.0-18.0); IMMATURE GRANULOCYTES 0.3 % (0.0-5.0); MEAN CELL VOLUME 81.6 fL CALC (80.0-100.0); MEAN CORPUSCULAR HGB 24.6 pG CALC (26.0-32.0); MEAN CORPUSCULAR HGB CONC 30.1 g/dL CAL (32.0-36.0); NEUT# 5.91 thou/uL (1.82-7.42); RED BLOOD COUNT 4.68 mill/uL (4.70-6.10); RED CELL DISTRI WIDTH 17.1 % (11.5-15.5)
--- NOTE | 2020-02-14 05:30 | NUR ---
NO CHANGE IN PHYSICAL ASSESMENT. VS TAKEN BY INK GRINDER @ 0313 ASSESED. TELEMETRY READING REPORTED BY ED BUSINESS ANALYST @ 0400 ASSESED. PT APPEARS COMFORTABLE AND IN NO DISTRESS. LAYING IN BED RESTING. DENIES NEEDS @ THIS TIME. CALL FRANKLIN REMAINS WITHIN REACH, AGREES TO CALL PRN. ITEMS REMAIN WITHIN REACH. BED REMAINS LOCKED IN LOW POSITION W/ BED RAILS UP X2.
[2020-02-14 05:39] LABS: ALBUMIN 3.5 g/dL (3.2-5.0); BILIRUBIN, TOTAL 0.6 mg/dL (0.0-1.4); CREATININE 1.5 mg/dL (0.7-1.3); POTASSIUM 4.6 mmol/l (3.5-5.1); TOTAL PROTEIN 6.1 g/dL (6.3-8.2)
--- NOTE | 2020-02-14 06:44 | NUR ---
PT DOWN TO RADIOLOGY FOR X-RAY VIA WC, ACCOMPANIED BY SENDY APPARATUS ENGINEERING TECHNOLOGIST.
--- NOTE | 2020-02-14 07:00 | NUR ---
SHIFT CHANGE REPORT, PT AWAKE ALERT ORIENTED RESTING IN BED, DENIES PAIN, TELE MONITOR IN PLACE, CALL FRANKLIN IN REACH.
[2020-02-14 07:41] VITALS: BP 113/65
[2020-02-14] MEDS ORDERED: LISINOPRIL10 MG PO (08:45)
[2020-02-14 10:55] VITALS: BP 101/61
--- NOTE | 2020-02-14 11:42 | NUR ---
SITTING UP IN BED, MEDICAL TEAM ROUNDING, PT C/O UNABLE TO LIFT LEFT ARM AND USES R. HAND TO LELP REPOSITION L.ARM, SAID THIS CONDITION BEGAN SINCE THIS ADMISSION, HAS MINOR PAIN TO L.SHOULDER, ALSO STATED HE CANT MANAGE AT HOME ANYMORE AND WANTS TO GO TO REHAB, MD ADDRESSING CONCERNS.
[2020-02-14 15:30] VITALS: BP 114/68
--- NOTE | 2020-02-14 16:00 | NUR ---
PT REQUEST MORPHINE HOME MED, AUTO WASHER NOTIFIED, ORDERED HYDROCODONE, PT DISSATISFIED AND STATES MED WILL NOT BE EFFECTIVE, ADVISED TO TRY MED AND WE WILL REASSESS TO SEE EFFECTIVENESS. PT REPORTED LATER MED WAS NOT EFFECTIVE, WARM COMPRESS APPLIED.
[2020-02-14 19:10] VITALS: BP 102/64
--- NOTE | 2020-02-14 20:45 | NUR ---
PHYSICAL ASSESMENT COMPLETE. VS TAKEN BY SHAREE @ 1910 ASSESED. TELEMETRY READING FROM ED SPOOL SANDER @ 1999 ASSESSED. PLAN OF CARE REVIEWED, PT VERBALIZES UNDERSTANDING, DENIES QUESTIONS. PT DENIES NEEDS @ THIS TIME. ITEMS WITHIN REACH. CALL FRANKLIN WITHIN REACH, AGREES TO CALL PRN. BED LOCKED IN LOW POSITION W/ BEDRAILS UP X2.
--- NOTE | 2020-02-14 23:45 | NUR ---
PT CALLS AND REPORTS EMESIS, APPROX 75 ML IN EMESIS BAG NOTED. PT STATES SINCE VOMITING HE FEELS BETTER AND DENIES NEED FOR FURTHER INTERVENTION. AGREES TO REPORT ANY CHANGES IN BASELINE.
[2020-02-14 23:50] VITALS: BP 111/75
--- NOTE | 2020-02-15 01:31 | NUR ---
PT APPEARS TO BE SLEEPING, NO APPARENT DISTRESS, APPEARS COMFORTABLE, RESPIRATIONS REGULAR AND UNLABORED. VS TAKEN BY BANK OFFICER @ 2350 ASSESED. TELEMETRY READING FROM ED COLLAR BAND CREASER @ 0000 ASSESSED. ITEMS REMAIN WITHIN REACH. CALL FRANKLIN REMAINS WITHIN REACH, BED REMAINS LOCKED IN LOW POSITION W/ BEDRAILS UP X2.
[2020-02-15 04:20] VITALS: BP 106/73
--- NOTE | 2020-02-15 05:03 | NUR ---
NO CHANGE IN PHYSICAL ASSESMENT. VS TAKEN BY SCOOP MACHINE OPERATOR @ 0420 ASSESED. TELEMETRY READING REPORTED BY ED ORGANIC EXTRACTIONS TECHNICIAN @ 0400 ASSESED. PT APPEARS COMFORTABLE AND IN NO DISTRESS. LAYING IN BED RESTING. DENIES NEEDS @ THIS TIME. CALL FRANKLIN REMAINS WITHIN REACH, AGREES TO CALL PRN. ITEMS REMAIN WITHIN REACH. BED REMAINS LOCKED IN LOW POSITION W/ BED RAILS UP X2.
--- NOTE | 2020-02-15 07:30 | NUR ---
REPORT RECEIVED FROM MAC BEYER. PT SITTING UP IN BED EATING BREAKFAST SLOWLY; REPORTS POOR APETITE. ALERT AND ORIENTED. DENIES PAIN AT THIS TIME, BUT REQUESTS HIS MS CONTIN. RESPIRATIONS EVEN AND UNLABORED ON ROOM AIR. LUNGS ARE CLEAR; SMALL DRESSING REMOVED FROM SITE OF THORACENTESIS; AREA APPEARS HEALTHY. PLAN OF CARE REVIEWED. PT ENCOURAGED TO VERBALIZE CONCERNS. STATES UNDERSTANDING. SAFETY MEASURES IN PLACE. CALL LIGHT WITHIN REACH.
--- NOTE | 2020-02-15 07:43 | NUR ---
Preliminary blood culture results called to Raeann HUFFMAN. 10/06 vials growing gram (+) cocci. No new orders at this time. Pharmacy will follow for Final C+S.
[2020-02-15 11:29] VITALS: BP 101/73
--- NOTE | 2020-02-15 11:53 | NUR ---
ULTRAM GIVEN FOR 3/10 LEFT SHOULDER PAIN. PT REPORTS POOR APETITE AND ATE MINIMAL LUNCH; AGREED TO DRINK ENSURE SUPPLEMENT; PROVIDED.
[2020-02-15 11:55] VITALS: BP 121/82
--- NOTE | 2020-02-15 12:13 | NUR ---
DR. ODOM AT BEDSIDE TO DISCUSS POC AND POOR PROGNOSIS. PT VERBALIZES DECLINATION OF ANY CHEMO OR TREATMENT FOR CANCER. HOSPICE CONSULT ORDERED.
--- NOTE | 2020-02-15 13:24 | NUR ---
MANISH FROM HOSPICE CALLED FOR INFORMATION ON PT; QUESTIONS ANSWERED TO SATISFACTION. HIDE HANDLER WILL BE IN TODAY TO SEE PT.
[2020-02-15 16:04] VITALS: BP 123/83
--- NOTE | 2020-02-15 17:43 | NUR ---
INGA FROM HOSPICE AT BEDSIDE FOR EVAL. PLACEMENT WILL BE PENDING COVID SWAB. FACESHEET AND H&P PROVIDED. PT WILL BE EVALUATED AGAIN ON TUESDAY.
[2020-02-15 19:50] VITALS: BP 114/75
--- NOTE | 2020-02-15 20:45 | NUR ---
PHYSICAL ASSESMENT COMPLETE. VS TAKEN BY LAST REPAIRER @ 1950 ASSESED. TELEMETRY READING FROM ED VALIDATION LEADER @ 1999 ASSESSED. PLAN OF CARE REVIEWED, PT VERBALIZES UNDERSTANDING, DENIES QUESTIONS. PT DENIES NEEDS @ THIS TIME. ITEMS WITHIN REACH. CALL FRANKLIN WITHIN REACH, AGREES TO CALL PRN. BED LOCKED IN LOW POSITION W/ BEDRAILS UP X2.
[2020-02-16 00:10] VITALS: BP 121/82
--- NOTE | 2020-02-16 01:26 | NUR ---
PT APPEARS TO BE SLEEPING, NO APPARENT DISTRESS, APPEARS COMFORTABLE, RESPIRATIONS REGULAR AND UNLABORED. VS TAKEN BY BRANCH SERVICES MANAGER @ 0010 ASSESED. TELEMETRY READING FROM ED EDI ANALYST @ 0000 ASSESSED. ITEMS REMAIN WITHIN REACH. CALL FRANKLIN REMAINS WITHIN REACH, BED REMAINS LOCKED IN LOW POSITION W/ BEDRAILS UP X2.
[2020-02-16 04:21] VITALS: BP 125/86
--- NOTE | 2020-02-16 04:42 | NUR ---
NO CHANGE IN PHYSICAL ASSESMENT. VS TAKEN BY QUALITY ASSURANCE COORDINATOR @ 0421 ASSESED. TELEMETRY READING REPORTED BY ED EMERGENCY MEDICINE PHYSICIAN ASSISTANT @ 0400 ASSESED. PT APPEARS COMFORTABLE AND IN NO DISTRESS. LAYING IN BED RESTING. DENIES NEEDS @ THIS TIME. CALL FRANKLIN REMAINS WITHIN REACH, AGREES TO CALL PRN. ITEMS REMAIN WITHIN REACH. BED REMAINS LOCKED IN LOW POSITION W/ BED RAILS UP X2.
--- NOTE | 2020-02-16 07:00 | NUR ---
REPORT RECEIVED FROM PRIMO GARCIA. PT SITTING UP IN BED; ALERT AND ORIENTED. DENIES PAIN CURRENTLY. RESPIRATIONS EVEN AND UNLABORED ON ROOM AIR. PLAN OF CARE REVIEWED. PT ENCOURAGED TO VERBALIZE CONCERNS. STATES UNDERSTANDING. SAFETY MEASURES IN PLACE. CALL LIGHT WITHIN REACH.
[2020-02-16 07:36] VITALS: BP 131/82
--- NOTE | 2020-02-16 08:48 | NUR ---
MS CONTIN GIVEN WITH AM MEDS FOR LEFT SHOULDER PAIN 12/10. PT SENT BELONGINGS SENT DOWN TO FAMILY PER PT REQUEST INCLUDING HIS APARTMENT GABRIEL AND $50 [place].
[2020-02-16 11:00] VITALS: BP 121/76
--- NOTE | 2020-02-16 12:58 | NUR ---
MARIN FROM HOSPICE ON THE PHONE WITH PT.
--- NOTE | 2020-02-16 15:02 | NUR ---
ULTRAM GIVEN FOR 3/10 LEFT SHOULDER PAIN. PT INDPENDENT IN ROOM. NO OTHER REQUESTS OR CONCERNS AT THIS TIME.
[2020-02-16 15:05] VITALS: BP 122/77
[2020-02-16 20:01] VITALS: BP 121/74
--- NOTE | 2020-02-16 21:30 | NUR ---
PT SITTING UP IN BED, ALERT AND ORIENTED. RESPIRATIONS EVEN AND UNLABORED ON RA. LUNGS SOUND DIMINISHED. PEDAL PULSES WEAK. PT REPORTS PAIN OF A 3/10 PT TO BE MEDICATED PER EMAR ORDERS. SAFETY PRECAUTIONS IN PLACE. WILL CONTINUE TO MONITOR.
[2020-02-17 00:10] VITALS: BP 127/76
--- NOTE | 2020-02-17 00:24 | NUR ---
PT SITTING UP IN BED WATCHING TV, ALERT AND ORIENTED. RESPIRATIONS EVEN AND UNLABORED ON RA. NO S/S OF DISTRESS AT THIS TIME. SAFETY PRECAUTIONS IN PLACE. WILL CONTINUE TO MONITOR.
[2020-02-17 03:20] VITALS: BP 111/60
--- NOTE | 2020-02-17 04:21 | NUR ---
PT RESTING IN BED. RESPIRATIONS EVEN AND UNLABORED ON RA. NO S/S OF DISTRESS AT THIS TIME. TELE IN PLACE. CALL FRANKLIN WITHIN REACH, WILL CONTINUE TO MONITOR.
--- NOTE | 2020-02-17 07:05 | NUR ---
REPORT RECEIVED FROM PRIMO CASTRO. PT SITTING UP IN BED; ALERT AND ORIENTED. DENIES PAIN. RESPIRATIONS EVEN AND UNLABORED ON ROOM AIR. ACCU CHECK 150. TELE ON. PLAN OF CARE REVIEWED. PT ENCOURAGED TO VERBALIZE CONCERNS. STATES UNDERSTANDING. SAFETY MEASURES IN PLACE. CALL LIGHT WITHIN REACH.
[2020-02-17 08:00] VITALS: BP 121/70
--- NOTE | 2020-02-17 09:13 | NUR ---
INDEPENDENT IN ROOM. PT REPORTS LARGE SEMI HARD BOWEL MOVEMENT.
[2020-02-17 11:12] VITALS: BP 119/63
--- NOTE | 2020-02-17 11:40 | NUR ---
PT REQUESTING MS CONTIN FOR 3/10 LEFT KNEE PAIN.
--- NOTE | 2020-02-17 12:13 | NUR ---
DR. BRISCOE AT BEDSIDE.
--- NOTE | 2020-02-17 13:36 | NUR ---
LASIX GIVEN ORDERED. PT ADMITS TO A MILD INCREASE IN SHORTNESS OF BREATH AND STATES, "I CAN FEEL THE FLUID BUILDING UP." RIGHT LUNG DIMINISHED WHEN COMPARED TO LEFT WITH MILD WHEEZING DEVELOPING IN RIGHT BASE.
[2020-02-17 15:26] VITALS: BP 126/83
--- NOTE | 2020-02-17 16:00 | NUR ---
PT INDEPENDENT IN ROOM; NO REQUESTS OR CONCERNS AT THIS TIME. USES CALL LIGHT PRN FOR ASSISTANCE. DENIES PAIN. RESPIRATIONS EVEN AND UNLABORED WITH MILD EXERTIONAL SOB. CALL LIGHT WITHIN REACH.
[2020-02-17 19:00] VITALS: BP 126/83
--- NOTE | 2020-02-17 20:28 | NUR ---
PTRESTING IN BED ALERT AND ORIENTED. RESPIRATIONS EVEN AND UNLABORED ON RA. UNGS SOUND DIMINISHED MORE SO ON THE RIGHT SIDE. PEDAL PULSES ARE STROG. PT REPORTS HAVING PAIN OF A 3/10 IN HIS KNEES, PT MEDICATED PER EMAR ORDERS. PT EDUCATED ON IV SITE AND INFECTION PREVENTION, PT REFUSED TO HAVE IV SITE CHANGED AT THIS TIME. TELE IN PLACE. WILL CONTINUE TO MONITOR.
--- NOTE | 2020-02-18 00:10 | NUR ---
PT RESTING ON COUCH, ALERT AND ORIENTED. NO S/S OF DISTRESS AT THIS TIME. SAFETY PRECAUTIONS IN PLACE. WILL CONTINUE TO MONITOR.
--- NOTE | 2020-02-18 04:07 | NUR ---
PT RESTING IN BED. NO S/S OF DISTRESS AT THIS TIME. CALL FRANKLIN WITHIN REACH. WILL CONTINUE TO MONITOR.
[2020-02-18 04:40] VITALS: BP 127/72
[2020-02-18 05:15] LABS: HEMATOCRIT 34.9 % (39.0-50.0); HEMOGLOBIN 10.8 g/dl (14.0-18.0); IMMATURE GRANULOCYTES 1.2 % (0.0-5.0); MEAN CELL VOLUME 80.4 fL CALC (80.0-100.0); MEAN CORPUSCULAR HGB 24.9 pG CALC (26.0-32.0); MEAN CORPUSCULAR HGB CONC 30.9 g/dL CAL (32.0-36.0); NEUT# 8.13 thou/uL (1.82-7.42); RED BLOOD COUNT 4.34 mill/uL (4.70-6.10); RED CELL DISTRI WIDTH 16.7 % (11.5-15.5)
[2020-02-18 05:28] LABS: ALBUMIN 3.3 g/dL (3.2-5.0); CREATININE 1.5 mg/dL (0.7-1.3); POTASSIUM 4.9 mmol/l (3.5-5.1); TOTAL PROTEIN 5.9 g/dL (6.3-8.2)
[2020-02-18 05:35] LABS: BILIRUBIN, TOTAL 0.3 mg/dL (0.0-1.4)
--- NOTE | 2020-02-18 07:10 | NUR ---
PT TRANSPORTED TO RADIOLOGY FOR CHEST XR VIA WHEELCHAIR WITH [facility] STAFF IN STABLE CONDITION AND BACK ONTO UNIT AT THIS TIME.
--- NOTE | 2020-02-18 07:15 | NUR ---
REPORT RECEIVED FROM PRIMO CASTRO. PT SITTING UP IN BED; ALERT AND ORIENTED. DENIES PAIN. RESPIRATIONS EVEN AND UNLABORED ON ROOM AIR. RIGHT LUNG DIMINISHED AND LEFT LUNG CLEAR. PLAN OF CARE REVIEWED. PT ENCOURAGED TO VERBALIZE CONCERNS. STATES UNDERSTANDING. SAFETY MEASURES IN PLACE. CALL LIGHT WITHIN REACH.
[2020-02-18 07:55] VITALS: BP 131/75
[2020-02-18 10:40] VITALS: BP 128/75
--- NOTE | 2020-02-18 11:35 | NUR ---
ANESTHESIA SPEAKING WITH DR. ODOM. AGREE TO PERFORM THORACENTESIS TODAY AND DISCHARGE TO HOSPICE. PT OFF UNIT VIA WHEELCHAIR FOR PROCEDURE.
[2020-02-18] MEDS ORDERED: DECADRON2 MG PO (11:40)
--- NOTE | 2020-02-18 12:05 | NUR ---
PT RETURNED TO UNIT VIA WHEELCHAIR IN STABLE CONDITION. SMALL DRY DRESSING TO LEFT MIDDLE BACK CDI. PT NOW BACK IN BED SITTING UP FOR LUNCH. DENIES PAIN AND DECLINES PAIN MEDICATION.
--- NOTE | 2020-02-18 13:32 | NUR ---
CEM, HOSPICE NURSE, AT BEDSIDE.
--- NOTE | 2020-02-18 13:59 | NUR ---
HOSPICE NURSE CONFIRMED APPROVAL FOR HOME WITH HOSPICE. PT UPDATED. STATES HIS RIDE CAN BE HERE TO PICK HIM UP AT 1730.
--- NOTE | 2020-02-18 15:24 | NUR ---
UPDATED CULTURE RESULTS CALLED TO BRANDO PERERA,NEW GROWTH AFTER >72. NO NEW ORDERS AT THIS TIME.
--- NOTE | 2020-02-18 16:26 | NUR ---
IV site discontinued, cath intact. No edema , no redness, voices no discomfort.
--- NOTE | 2020-02-18 18:04 | NUR ---
Discharge instructions given. Patient verbalizes understanding of same. Discharged in stable condition via Wheelchair to Home with hospice with a friend. All belongings sent with pt.
== END 2020-02-18 17:59 | disposition hospice, home (50) ==
LOC: ED 10:57 → ED-I 12:34 → ED 12:47 → ED-I 12:48 → MS2 12:48
PROVIDERS: Family Medicine; Nurse Practitioner Family; ADMIT Internal Medicine; ATTEND Internal Medicine
PROC: 0W993ZZ Drainage of Right Pleural Cavity, Percutaneous Approach (ICD-10-PCS; principal; 2020-02-13)
PROC: BB4BZZZ Ultrasonography of Pleura (ICD-10-PCS; 2020-02-13)
PROC: 0W993ZZ Drainage of Right Pleural Cavity, Percutaneous Approach (ICD-10-PCS; 2020-02-18)
PROC: BB4BZZZ Ultrasonography of Pleura (ICD-10-PCS; 2020-02-18)
DX: C43.9 Malignant melanoma of skin, unspecified (principal); C78.00 Secondary malignant neoplasm of unspecified lung; J91.0 Malignant pleural effusion; C79.31 Secondary malignant neoplasm of brain; E11.9 Type 2 diabetes mellitus without complications; I10 Essential (primary) hypertension; R53.1 Weakness; R52 Pain, unspecified; Z92.21 Personal history of antineoplastic chemotherapy; Z95.1 Presence of aortocoronary bypass graft; Z20.828 Contact with and (suspected) exposure to other viral communicable diseases
CPT/HCPCS: G0378

== ENCOUNTER → 2020-02-22 | Day surgery (SDC) | payer OTHER, MEDICARE ==
[~2020-02-22] MED LIST changes: +DECADRON2 MG PO; +LISINOPRIL10 MG PO; +NORVASC5 M1 PO
[2020-02-22 09:05] LABS: HEMATOCRIT 38.6 % (39.0-50.0); HEMOGLOBIN 11.8 g/dl (14.0-18.0); IMMATURE GRANULOCYTES 1.8 % (0.0-5.0); MEAN CELL VOLUME 81.3 fL CALC (80.0-100.0); MEAN CORPUSCULAR HGB 24.8 pG CALC (26.0-32.0); MEAN CORPUSCULAR HGB CONC 30.6 g/dL CAL (32.0-36.0); NEUT# 10.27 thou/uL (1.82-7.42); RED BLOOD COUNT 4.75 mill/uL (4.70-6.10); RED CELL DISTRI WIDTH 17.6 % (11.5-15.5)
[2020-02-22 09:11] LABS: ALBUMIN 3.1 g/dL (3.2-5.0); ALKALINE PHOSPHATASE 72 u/l (38-126); ANION GAP 11 (6-22 (CALC)); BUN 30 mg/dL (8-23); BUN/CREATININE RATIO 27 (12-20 (CALC)); CARBON DIOXIDE 24 mmol/l (22-30); CHLORIDE 105 mmol/l (95-108); CREATININE 1.1 mg/dL (0.7-1.3); GFR > 60 ML/MIN (>=60 (CALC)); GFR FOR AFR.AMER. > 60 ML/MIN (>=60 (CALC)); POTASSIUM 4.4 mmol/l (3.5-5.1); SGOT/AST 24 u/l (19-48); SODIUM 135 mmol/l (137-146); TOTAL PROTEIN 5.7 g/dL (6.3-8.2)
[2020-02-22 09:13] LABS: BILIRUBIN, TOTAL 0.5 mg/dL (0.0-1.4)
[2020-02-22 14:05] VITALS: BP 98/58
== END | disposition home or self-care (01) ==
LOC: ED 08:21 → ED-I 09:35 → ED 10:02 → ORM 10:03
PROVIDERS: Family Medicine; ATTEND Surgery
PROC: 0W993ZZ Drainage of Right Pleural Cavity, Percutaneous Approach (ICD-10-PCS; principal; 2020-02-22)
DX: C34.91 Malignant neoplasm of unspecified part of right bronchus or lung (principal); J91.0 Malignant pleural effusion; C79.31 Secondary malignant neoplasm of brain; C43.9 Malignant melanoma of skin, unspecified; I10 Essential (primary) hypertension; E11.9 Type 2 diabetes mellitus without complications; Z95.1 Presence of aortocoronary bypass graft

== ENCOUNTER 2020-03-07 08:56 | Emergency (ER) | payer OTHER, MEDICARE ==
[2020-03-07 09:40] LABS: HEMATOCRIT 41.1 % (39.0-50.0); HEMOGLOBIN 12.6 g/dl (14.0-18.0); MEAN CELL VOLUME 80.6 fL CALC (80.0-100.0); MEAN CORPUSCULAR HGB 24.7 pG CALC (26.0-32.0); MEAN CORPUSCULAR HGB CONC 30.7 g/dL CAL (32.0-36.0); NEUT# 15.33 thou/uL (1.82-7.42); RED BLOOD COUNT 5.1 mill/uL (4.70-6.10); RED CELL DISTRI WIDTH 17.8 % (11.5-15.5)
[2020-03-07 09:56] LABS: INTERNATIONAL NORMALIZED RATIO 0.9 RATIO (0.7-1.3); PROTHROMBIN TIME 9.5 SECONDS (9.0-12.5)
[2020-03-07 09:57] LABS: ALBUMIN 3.3 g/dL (3.2-5.0); ALKALINE PHOSPHATASE 70 u/l (38-126); ANION GAP 15 (6-22 (CALC)); BILIRUBIN, TOTAL 0.3 mg/dL (0.0-1.4); BUN 51 mg/dL (8-23); BUN/CREATININE RATIO 45 (12-20 (CALC)); CARBON DIOXIDE 21 mmol/l (22-30); CHLORIDE 105 mmol/l (95-108); CREATININE 1.1 mg/dL (0.7-1.3); GFR > 60 ML/MIN (>=60 (CALC)); GFR FOR AFR.AMER. > 60 ML/MIN (>=60 (CALC)); POTASSIUM 4.3 mmol/l (3.5-5.1); SGOT/AST 23 u/l (19-48); SODIUM 137 mmol/l (137-146); TOTAL PROTEIN 5.8 g/dL (6.3-8.2)
[2020-03-07 12:35] VITALS: BP 111/76
== END 2020-03-07 12:35 | disposition home or self-care (01) ==
LOC: ED 08:56
PROVIDERS: Student in an Organized Health Care Education/Training Program
PROC: 0W993ZZ Drainage of Right Pleural Cavity, Percutaneous Approach (ICD-10-PCS; principal; 2020-03-07)
PROC: BB4BZZZ Ultrasonography of Pleura (ICD-10-PCS; 2020-03-07)
DX: C80.1 Malignant (primary) neoplasm, unspecified (principal); J91.0 Malignant pleural effusion; I10 Essential (primary) hypertension; E11.9 Type 2 diabetes mellitus without complications; Z51.5 Encounter for palliative care; Z96.89 Presence of other specified functional implants; Z48.02 Encounter for removal of sutures